=== PATIENT | male | born 1965 | race African-American/Black ===

== ENCOUNTER 2018-05-08 10:11 | Inpatient (IN) | payer OTHER ==
[~2018-05-08] VITALS: Ht 180.3 cm; Wt 63.4 kg
--- NOTE | ~2018-05-08 | HC ---
[facility] [address] [place] [address] CONSULTATION Name: MCKENNA AMAYA Room #: 203-P [facility] IN M.R.#: [id number] Admission: 05/08/18 Attend Phys: Luciano Miranda MD Discharge: Date of : 63 Report #: [id number] THIS REPORT FOR: //name// CC: Luciano Miranda DATE OF SERVICE: 05/08/2018 Nephrology Consultation ATTENDING PHYSICIAN: Luciano Miranda MD REASON FOR CONSULTATION: End-stage renal disease. HISTORY OF PRESENT ILLNESS: This patient is well known to our service with longstanding diabetes, end-stage renal disease, dialyzes at the [facility] in [facility]. He has had an indwelling Monroe. It has gotten infected. He was hypotensive, came to the emergency room and was admitted. Potassium was 6.1 and he is currently on dialysis. PAST MEDICAL HISTORY: We know that he has got longstanding diabetes mellitus with triopathy, end-stage renal disease, on dialysis. Rest of the history difficult to take due to his current mental status and weakness. 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 We know that he has got sickle cell trait. MEDICATIONS: At the facility include PhosLo 1 with meals t.i.d., trazodone 50 mg daily, Neurontin 300 mg t.i.d., finasteride 5 mg daily, insulin, amlodipine 5 mg daily, atorvastatin 10 mg daily, famotidine 20 mg daily, oxycodone, tamsulosin 0.4 mg daily, despite longstanding indwelling Monroe catheter, Nephro-Gabriel 1 daily, metoprolol tartrate 25 mg b.i.d. He gets Glucerna. SOCIAL HISTORY: No cigarettes or alcohol. He is staying at the correction currently. REVIEW OF SYSTEMS: GENERAL: He has been feeling poorly. EYES: He can see at all. ENT: Hearing okay. ENDOCRINE: Positive for the diabetes. RESPIRATORY: Denies shortness of breath, cough, pleuritic pain. CARDIAC: Negative for chest pain or palpitations. GASTROINTESTINAL: He has had a poor appetite, but no nausea, vomiting or diarrhea. GENITOURINARY: He has got indwelling Monroe, which has been changed. SKIN: No new skin rashes. NEUROLOGIC: He has got numbness in his lower extremities and diffuse weakness. [address] [address] CONSULTATION Name: MCKENNA AMAYA Room #: 203-P [facility] IN .R.#: [id number] Admission: 05/08/18 Attend Phys: Luciano Miranda MD Discharge: Date of : 63 Report #: [id number] PHYSICAL EXAMINATION: GENERAL: This is an ill-appearing gentleman seen in the emergency room. SKIN: No rashes. SKELETAL: Well developed, well nourished. HEENT: He is bilaterally blind. Mucous membranes are moist. NECK: Supple. CHEST: Clear. HEART: Regular. ABDOMEN: Soft and nontender. EXTREMITIES: Showed no edema. He has got healing heel ulcers bilaterally. NEUROLOGIC: Shows grossly intact. LABORATORY DATA: Chest x-ray shows no infiltrates. The urine is clearly infected, turbid, cloudy. Hemoglobin 12.5, white count 14.8, sodium 133, potassium 6.1, chloride 94, bicarbonate 29, BUN 47, creatinine 8.9. ASSESSMENT AND PLAN: 1. Fatigue with hypotension. He appears to have urinary tract infection. Cultures have been taken. He will obviously need antibiotics. I will leave that up to the primary team. 2. Hyperkalemia. He will undergo acute dialysis. 3. End-stage renal disease, dialysis underway, orders are in. 4. Diabetes mellitus with triopathy and blindness. 5. Hypertension, currently hypotensive. 6. Urinary retention with indwelling Monroe. <ELECTRONICALLY SIGNED> By: Taras Vences MD 05/10/18 [id number] Taras Vences MD /nt
--- NOTE | ~2018-05-08 | EKG ---
[address] [address] ELECTROCARDIOGRAM REPORT Name: MCKENNA AMAYA Room #: 203-P [facility] IN M.R.#: [id number] Admission: 05/08/18 Attend Phys: Luciano Miranda MD Discharge: Date of : 63 Report #: [id number] THIS REPORT FOR: //name// [facility] ED Test Date: 2018-05-08 Test Time: 10:53:13 Pat Name: MCKENNA AMAYA Department: Room: 203 Gender: M Lehr Cutter: YONI : 1965 Requested By: Pedro Persaud Order Number: [id number] MD: Tesfaye Low Measurements Intervals [place] Rate: 92 P: 73 DC: 135 QRS: 73 QRSD: 85 T: 56 QT: 349 QTc: 432 Interpretive Statements Sinus rhythm Normal tracing No previous ECG available for comparison Electronically Signed On 05-09-2018 8:46:49 CDT by Tesfaye Low [email or web address] <ELECTRONICALLY SIGNED> By: Tesfaye Low MD, [facility] 05/09/18 0846 [id number] Tesfaye Low MD, FACC /EPI
[2018-05-08 10:17] VITALS: BP 91/62
[2018-05-08] MEDS ORDERED: TRAZODONE HCL50 MG PO (11:15)
[2018-05-08] MEDS ORDERED: PHOSLO667 MG PO (11:15)
[2018-05-08] MEDS ORDERED: NEURONTIN300 MG PO (11:16)
[2018-05-08] MEDS ORDERED: TIMOLOL GL0.5 %/5 M1 OPHTHALMIC (11:17)
[2018-05-08] MEDS ORDERED: PROSCAR 5MG TABL5 MG PO (11:17)
[2018-05-08] MEDS ORDERED: PRED-G 1% EYE DR5 ML OPHTHALMIC (11:18)
[2018-05-08] MEDS ORDERED: HUMALOG100 UNIT/1 SUBQ (11:18)
[2018-05-08] MEDS ORDERED: LIPITOR10 MG PO (11:19)
[2018-05-08] MEDS ORDERED: NORVASC5 MG PO (11:19)
[2018-05-08] MEDS ORDERED: LANTUS100 UNIT/M SUBQ (11:19)
[2018-05-08] MEDS ORDERED: FAMOTIDINE20 MG PO (11:19)
[2018-05-08 11:20] LABS: ABSOLUTE NEUTROPHILS 11.9 thou/uL (1.4-8.2); BASOPHILS 0.7 % (0.0-2.0); EOSINOPHILS 0.8 % (0.0-3.0); HEMATOCRIT 38.8 % (42.0-52.0); HEMOGLOBIN 12.5 gm/dL (14.0-18.0); LYMPHOCYTES 11.7 % (24.0-44.0); MCH 26.9 pg (26.0-34.0); MCHC 32.2 g/dL (28.0-37.0); MCV 83.6 fL (80.0-100.0); MONOCYTES 6.6 % (1.0-8.0); PLATELET COUNT 307 thou/uL (150-400); POLYS 80.2 % (36.0-66.0); RBC 4.65 mil/uL (4.50-6.00); RDW 18.7 % (10.5-14.5); WBC 14.8 thou/uL (4.0-11.0)
[2018-05-08] MEDS ORDERED: FLOMAX0.4 MG PO (11:20)
[2018-05-08] MEDS ORDERED: OXYCODONE HCL 55 MG PO (11:20)
[2018-05-08] MEDS ORDERED: NEPHRO-VITE RX1 TA1 PO (11:20)
[2018-05-08] MEDS ORDERED: LOPRESSOR25 PO (11:21)
[2018-05-08] MEDS ORDERED: GLUCERNA237 ML PO (11:22)
[2018-05-08 11:30] LABS: ANION GAP 10 mmol/L (7-16); BUN 47 mg/dL (7-18); CALCIUM 10.7 mg/dL (8.5-10.1); CHLORIDE 94 mmol/L (98-107); CO2 29 mmol/L (21-32); CREATININE 8.9 mg/dL (0.7-1.3); GLUCOSE 135 mg/dL (74-106); SODIUM 133 mmol/L (136-145)
[2018-05-08 11:32] LABS: POTASSIUM 6.1 mmol/L (3.5-5.1)
[2018-05-08 11:39] LABS: TROPONIN-I <0.06 ng/mL (<0.06)
[2018-05-08 12:11] LABS: ANISOCYTOSIS 2+; POLYCHROMASIA OCCASIONAL
[2018-05-08 14:03] LABS: URINE BILIRUBIN NEGATIVE (Negative); URINE BLOOD 3+ (Negative); URINE COLOR YELLOW; URINE GLUCOSE-RANDOM* NEGATIVE (Negative); URINE KETONES NEGATIVE (Negative); URINE NITRITE-REFLEX NEGATIVE (Negative); URINE PROTEIN (DIPSTICK) 3+ (Negative); URINE UROBILINOGEN 0.2 E.U./dl (0.2-1.0)
[2018-05-08 14:04] LABS: URINE CLARITY CLOUDY; URINE LEUKOCYTES-REFLEX 3+ (Negative)
[2018-05-08 14:29] LABS: BACTERIA-REFLEX >30 Many /HPF (None Seen); CASTS None Seen /LPF (None Seen); CRYSTALS None Seen /LPF (None Seen); SQUAMOUS 0-3 Few /LPF (0-3); URINE WBC-REFLEX >25 Many /HPF (0-5)
[2018-05-08 16:16] VITALS: BP 102/56
[2018-05-08 17:59] VITALS: BP 111/71
[2018-05-08 19:51] VITALS: BP 121/89
[2018-05-08 20:44] VITALS: BP 107/75
[2018-05-09 00:39] VITALS: BP 100/65
[2018-05-09 04:45] LABS: HEMATOCRIT 33.8 % (42.0-52.0); MCH 27.1 pg (26.0-34.0); MCHC 32.5 g/dL (28.0-37.0); MCV 83.2 fL (80.0-100.0); RBC 4.06 mil/uL (4.50-6.00); WBC 10.3 thou/uL (4.0-11.0)
[2018-05-09 05:42] VITALS: BP 127/77
[2018-05-09 07:21] VITALS: BP 106/72
[2018-05-09 08:30] LABS: PROTIME 10.4 Seconds (9.3-11.4)
[2018-05-09 19:29] VITALS: BP 149/100
[2018-05-10 00:15] VITALS: BP 136/87
[2018-05-10 04:25] VITALS: BP 146/90
[2018-05-10 04:29] LABS: ALBUMIN 2.9 g/dL (3.4-5.0); CALCIUM 9.1 mg/dL (8.5-10.1); CREATININE 5.2 mg/dL (0.7-1.3); PHOSPHORUS 5.3 mg/dL (2.5-4.9); POTASSIUM 3.7 mmol/L (3.5-5.1)
[2018-05-10 07:18] VITALS: BP 134/88
[2018-05-10 15:18] VITALS: BP 158/78
[2018-05-10 19:21] VITALS: BP 145/96
[2018-05-11 04:24] VITALS: BP 105/80
[2018-05-11 07:52] VITALS: BP 124/85
[2018-05-11 17:00] VITALS: BP 152/96
[2018-05-11 19:16] VITALS: BP 151/85
[2018-05-12] MEDS ORDERED: ROCEPHIN 11 GM/1001 IV (00:20)
[2018-05-12 04:15] VITALS: BP 165/92
[2018-05-12 07:30] VITALS: BP 125/85
[2018-05-12 09:47] LABS: HEMATOCRIT 36.7 % (42.0-52.0); HEMOGLOBIN 11.9 gm/dL (14.0-18.0); MCH 26.8 pg (26.0-34.0); MCHC 32.3 g/dL (28.0-37.0); RBC 4.42 mil/uL (4.50-6.00); WBC 7.1 thou/uL (4.0-11.0)
[2018-05-12 10:03] LABS: ALBUMIN 3.6 g/dL (3.4-5.0); CALCIUM 10.1 mg/dL (8.5-10.1); CREATININE 5.6 mg/dL (0.7-1.3); PHOSPHORUS 3.7 mg/dL (2.5-4.9); POTASSIUM 4.4 mmol/L (3.5-5.1)
[2018-05-12 11:16] VITALS: BP 151/72
== END 2018-05-12 16:29 | DRG 871 ==
LOC: ER 10:11 → EDBD 10:11 → EROBS 13:28 → 2N 13:28
PROVIDERS: Emergency Medicine; Internal Medicine; Internal Medicine Nephrology; Radiology Diagnostic Radiology
PROC: 5A1D70Z Performance of Urinary Filtration, Intermittent, Less than 6 Hours Per Day (ICD-10-PCS; principal; 2018-05-08)
PROC: B5181ZA Fluoroscopy of Superior Vena Cava using Low Osmolar Contrast, Guidance (ICD-10-PCS; 2018-05-09)
PROC: 5A1D70Z Performance of Urinary Filtration, Intermittent, Less than 6 Hours Per Day (ICD-10-PCS; 2018-05-09)
PROC: 02HV33Z Insertion of Infusion Device into Superior Vena Cava, Percutaneous Approach (ICD-10-PCS; 2018-05-09)
PROC: B548ZZA Ultrasonography of Superior Vena Cava, Guidance (ICD-10-PCS; 2018-05-09)
PROC: 0JH63XZ Insertion of Tunneled Vascular Access Device into Chest Subcutaneous Tissue and Fascia, Percutaneous Approach (ICD-10-PCS; 2018-05-09)
PROC: 5A1D70Z Performance of Urinary Filtration, Intermittent, Less than 6 Hours Per Day (ICD-10-PCS; 2018-05-10)
DX: A41.9 Sepsis, unspecified organism (principal); N18.6 End stage renal disease; I12.0 Hypertensive chronic kidney disease with stage 5 chronic kidney disease or end stage renal disease; E11.22 Type 2 diabetes mellitus with diabetic chronic kidney disease; E87.5 Hyperkalemia; N30.90 Cystitis, unspecified without hematuria; E11.319 Type 2 diabetes mellitus with unspecified diabetic retinopathy without macular edema; R33.9 Retention of urine, unspecified; H54.8 Legal blindness, as defined in USA; Z99.2 Dependence on renal dialysis; Z79.4 Long term (current) use of insulin; Z79.899 Other long term (current) drug therapy
CPT/HCPCS: 10081; 32100

== ENCOUNTER → 2018-11-13 | Outpatient (CLI) | payer OTHER ==
[~2018-11-13] MED LIST: FAMOTIDINE20 MG PO; FLOMAX0.4 MG PO; GLUCERNA237 ML PO; HUMALOG100 UNIT/1 SUBQ; LANTUS100 UNIT/M SUBQ; LIPITOR10 MG PO; LOPRESSOR25 PO; NEPHRO-VITE RX1 TA1 PO; NEURONTIN300 MG PO; NORVASC5 MG PO; OXYCODONE HCL 55 MG PO; PHOSLO667 MG PO; PRED-G 1% EYE DR5 ML OPHTHALMIC; PROSCAR 5MG TABL5 MG PO; ROCEPHIN 11 GM/1001 IV; TIMOLOL GL0.5 %/5 M1 OPHTHALMIC; TRAZODONE HCL50 MG PO
== END ==
LOC: MRI 09:22
DX: M47.812 Spondylosis without myelopathy or radiculopathy, cervical region (principal); M50.21 Other cervical disc displacement, high cervical region; M48.02 Spinal stenosis, cervical region; M43.13 Spondylolisthesis, cervicothoracic region